=== PATIENT | female | born 1980 | race Caucasian/White ===

== ENCOUNTER 2017-01-16 10:30 | Inpatient (IN) | payer BC, OTHER ==
[2017-01-16] MEDS ORDERED: fentaNYL* 50 MCG/ML 2 ML VIAL (100 MCG VIAL) ONE (13:45)
[2017-01-16] MEDS ORDERED: Lidocaine 1% MPF* 2 ML VIAL ONE (13:49)
[2017-01-16 14:14] LABS: Hematocrit 35 % (35-47); Hemoglobin 11.5 g/dl (12.0-16.0); Mean Corpuscular HGB Conc 33 g/dl (31-36); Mean Corpuscular Hemoglobin 31 pg (27-31); Mean Corpuscular Volume 93 fL (80-97); Mean Platelet Volume 10 um3 (7.4-10.4); Red Blood Count 3.77 10^6/ul (4.0-5.4); Red Cell Distribution Width 14 % (10.5-15); White Blood Count 17.5 10^3/ul (3.5-10.8)
[2017-01-16] MEDS ORDERED: Famotidine TAB* 20 MG PO PRN (15:18)
[2017-01-16] MEDS ORDERED: Sodium Citrate/Citric Acid* 15 ML UDC PO PRN (15:18)
[2017-01-16] MEDS ORDERED: Phenylephrine IV* 40 MCG/ML 10 ML SYRINGE IV PUSH PRN (15:18)
[2017-01-16] MEDS ORDERED: Mineral Oil Sterile, TOPICAL* 25 ML BTL ONE (16:17)
[2017-01-16] MEDS ORDERED: Oxytocin in LR* 20 UNITS/1,000 ML BAG IVPB ONE (16:40)
[2017-01-16] MEDS ORDERED: Acetaminophen TAB* 325 MG PO PRN (16:53)
[2017-01-16] MEDS ORDERED: Dibucaine 1% 28.35 GM TUBE PR PRN (16:53)
[2017-01-16] MEDS ORDERED: Witch Hazel PAD* JAR TOPICAL PRN (16:53)
[2017-01-16] MEDS ORDERED: oxyCODONE/Acetamin 5/325 MG* TAB PO PRN (16:55)
[2017-01-16] MEDS ORDERED: Oxytocin in LR* 20 UNITS/1,000 ML BAG IVPB SCH (17:00)
[2017-01-16] MEDS: Ibuprofen TAB* 600 MG PO PRN (19:16)
[2017-01-16] MEDS: Docusate CAP* 100 MG PO SCH (20:39)
[2017-01-17] MEDS: Ibuprofen TAB* 600 MG PO PRN ×2 (02:00→09:52)
[2017-01-17] MEDS ORDERED: Ferrous Gluconate TAB* 324 MG TAB PO SCH (09:00)
[2017-01-17] MEDS: Docusate CAP* 100 MG PO SCH ×2 (09:52→15:50)
[2017-01-17 09:59] LABS: Hematocrit 32 % (35-47); Hemoglobin 10.3 g/dl (12.0-16.0); Mean Corpuscular HGB Conc 33 g/dl (31-36); Mean Corpuscular Hemoglobin 31 pg (27-31); Mean Corpuscular Volume 94 fL (80-97); Mean Platelet Volume 9 um3 (7.4-10.4); Red Blood Count 3.37 10^6/ul (4.0-5.4); Red Cell Distribution Width 14 % (10.5-15); White Blood Count 14.6 10^3/ul (3.5-10.8)
[2017-01-17 15:31] VITALS: BP 106/63
== END 2017-01-17 18:03 | disposition home or self-care (01) | DRG 560 ==
LOC: MCHOBOUT 10:30 → MCHOB 10:40
PROVIDERS: ADMIT Nurse Practitioner; ATTEND Midwife
PROC: 10E0XZZ Delivery of Products of Conception, External Approach (ICD-10-PCS; principal; 2017-01-16)
PROC: 10907ZC Drainage of Amniotic Fluid, Therapeutic from Products of Conception, Via Natural or Artificial Opening (ICD-10-PCS; 2017-01-16)
PROC: 4A1HXCZ Monitoring of Products of Conception, Cardiac Rate, External Approach (ICD-10-PCS; 2017-01-16)
PROC: 0HQ9XZZ Repair Perineum Skin, External Approach (ICD-10-PCS; 2017-01-16)
DX: O70.0 First degree perineal laceration during delivery (principal); Z37.0 Single live birth; Z3A.39 39 weeks gestation of pregnancy
CPT/HCPCS: 36415; 85027; 86850; 86900; 86901; A9270-GY; J3010

== ENCOUNTER 2018-10-10 18:58 | Emergency (ER) | payer BC, OTHER ==
[2018-10-10 19:11] VITALS: BP 119/76
--- NOTE | 2018-10-10 19:14 | UC ---
Throat Pain/Nasal Tye HPI - HPI Summary HPI Summary: 38 yo female presents with sore throat for the last 3-4 days. She has small children at home with colds and fevers and is concerned about strep. She has not been taking anything OTC. Denies fever, chills, sinus symptoms, cough, rash. - History of Current Complaint Chief Complaint: UCGeneralIllness Stated Complaint: SORE THROAT Time Seen by Provider: 10/10/18 19:13 Hx Obtained From: Patient Hx Last Menstrual Period: [id number] Onset/Duration: Sudden Onset Severity: Mild Pain Intensity: 2 Pain Scale Used: 0-10 Numeric - Allergies/Home Medications Allergies/Adverse Reactions: Allergies Allergy/AdvReac Type Severity Reaction Status Date / Time No Known Allergies Allergy Verified 10/10/18 19:11 PMH/Surg Hx/FS Hx/Imm Hx - Additional Past Medical History Additional PMH: None - Surgical History Surgical History: Yes Surgery Procedure, Year, and Place: tonsils; wisdom teeth - Family History Known Family History: Positive: None - Social History Occupation: Employed Full-time Lives: With Family Alcohol Use: Weekly Alcohol Amount: 3x's weekly Substance Use Type: None Smoking Status (MU): Never Smoked Tobacco Have You Smoked in the Last Year: No - Immunization History Most Recent Influenza Vaccination: 2016 Most Recent Tetanus Shot: 03/04/15 Most Recent Pneumonia Vaccination: never Review of Systems All Other Systems Reviewed And Are Negative: Yes Constitutional: Positive: Negative Skin: Positive: Negative Eyes: Positive: Negative ENT: Positive: Sore Throat Respiratory: Positive: Negative Cardiovascular: Positive: Negative Gastrointestinal: Positive: Negative Neurological: Positive: Negative Psychological: Positive: Negative Physical Exam - Summary Physical Exam Summary: GENERAL: NAD. WDWN. No pain distress. SKIN: No rashes, sores, lesions, or open wounds. HEENT: Head: AT/NC Eyes: EOM intact. Conjunctiva clear without inflammation or discharge. Ears: Hearing grossly normal. TMs intact, no bulging, erythema, or edema. Nose: Nasal mucosa pink and moist. NTTP maxillary and frontal sinus. Throat: Posterior oropharynx without exudates, erythema, or tonsillar enlargement. Uvula midline. NECK: Supple. Nontender. No lymphadenopathy. CHEST: CTAB. No r/r/w. No accessory muscle use. Breathing comfortably and in no distress. CV: RRR. Without m/r/g. Pulses intact. Cap refill <2seconds NEURO: Alert. PSYCH: Age appropriate behavior. Triage Information Reviewed: Yes Vital Signs: Initial Vital Signs Temp 99.0 F 10/10/18 19:06 Pulse 81 10/10/18 19:06 Resp 16 10/10/18 19:06 BP 119/76 10/10/18 19:06 Pulse Ox 100 10/10/18 19:06 Laboratory Tests 10/10/18 19:20 Group A Strep Rapid Negative Vital Signs Reviewed: Yes Throat Pain/Nasal Course/Dx - Course Course Of Treatment: POC strep negative. Suspect viral illness. - Differential Dx/Diagnosis Provider Diagnosis: Viral pharyngitis Discharge - Sign-Out/Discharge Documenting (check all that apply): Patient Departure All imaging exams completed and their final reports reviewed: No Studies - Discharge Plan Condition: Stable Disposition: HOME Patient Education Materials: Pharyngitis (ED) Referrals: Brandie Sow NP [Primary Care Provider] - Additional Instructions: If you develop a fever, shortness of breath, chest pain, new or worsening symptoms - please call your PCP or go to the ED. I recommend trying some tylenol/ibuprofen for discomfort as well as tea with honey to help your sore throat. - Billing Disposition and Condition Condition: STABLE Disposition: Home
== END 2018-10-10 19:40 | disposition home or self-care (01) ==
LOC: UCEAST 18:58
DX: J02.9 Acute pharyngitis, unspecified (principal)
CPT/HCPCS: 87651; 99211; G0463

== ENCOUNTER 2019-05-03 11:24 | Emergency (ER) | payer BC ==
[2019-05-03 11:46] VITALS: BP 114/69
--- NOTE | 2019-05-03 12:15 | UC ---
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 Has had congestion, sore throat, malaise, myalgias. Proceeded to have flu vaccine on , and day following had increased cough and fatigue. Concerned of infectious risk to young children at home. Mild chest tightness, appetite normal, no fever. - History of Current Complaint Chief Complaint: UCGeneralIllness Stated Complaint: FLU LIKE SYMPTOMS Time Seen by Provider: 05/03/19 11:56 Hx Obtained From: Patient Hx Last Menstrual Period: 04/26/19 Onset/Duration: Gradual Onset, Lasting Days - 7 Pain Intensity: 2 Cough: Nonproductive Associated Signs & Symptoms: Positive: Dysphagia, Hoarseness, Nasal Discharge - Epiglottits Risk Factors Epiglottis Risk Factors: Negative - Allergies/Home Medications Allergies/Adverse Reactions: Allergies Allergy/AdvReac Type Severity Reaction Status Date / Time No Known Allergies Allergy Verified 05/03/19 11:46 Home Medications: Home Medications NK [No Home Medications Reported] 05/03/19 [History Confirmed 05/03/19] PMH/Surg Hx/FS Hx/Imm Hx Previously Healthy: Yes - Surgical History Surgical History: Yes Surgery Procedure, Year, and Place: tonsils; wisdom teeth - Family History Known Family History: Positive: None, Non-Contributory - Social History Occupation: Employed Part-time Lives: With Family Alcohol Use: Weekly Alcohol Amount: 3x's weekly Substance Use Type: None Smoking Status (MU): Never Smoked Tobacco Have You Smoked in the Last Year: No - Immunization History Most Recent Influenza Vaccination: 2015 Most Recent Tetanus Shot: 03/04/15 Most Recent Pneumonia Vaccination: never Review of Systems All Other Systems Reviewed And Are Negative: Yes Constitutional: Positive: Fatigue ENT: Positive: Sore Throat, Nasal Discharge Respiratory: Positive: Cough. Negative: Shortness Of Breath Cardiovascular: Negative: Palpitations, Chest Pain Gastrointestinal: Positive: Diarrhea - some loose stools. Negative: Abdominal Pain, Vomiting, Nausea Genitourinary: Positive: Negative Motor: Positive: Negative Neurovascular: Positive: Negative Musculoskeletal: Positive: Myalgia Neurological: Positive: Negative Psychological: Positive: Negative Is Patient Immunocompromised?: No Physical Exam Triage Information Reviewed: Yes Appearance: No Pain Distress, Ill-Appearing - looks fatigued and mildly unwell. Vital Signs: Initial Vital Signs Temp 98 F 05/03/19 11:43 Pulse 78 05/03/19 11:43 Resp 17 05/03/19 11:43 BP 114/69 05/03/19 11:43 Pulse Ox 100 05/03/19 11:43 Eyes: Positive: Conjunctiva Clear ENT: Positive: Pharynx normal Neck: Positive: Supple, Nontender, Enlarged Nodes @ - mildly enlarged left tonsillar node, no other adenopathy. Respiratory: Positive: Lungs clear, Normal breath sounds, No respiratory distress Cardiovascular: Positive: RRR, No Murmur Musculoskeletal Exam: Normal Neurological Exam: Normal Psychological Exam: Normal Skin Exam: Normal Throat Pain/Nasal Course/Dx - Course Course Of Treatment: Continue symptomatic treatment of viral respiratory illness. Reviewed that progression not highly suggestive of flu and deferred testing. - Differential Dx/Diagnosis Differential Diagnosis/HQI/PQRI: Influenza, Pharyngitis, Sinusitis, URI Provider Diagnosis: URI, acute Discharge ED - Sign-Out/Discharge Documenting (check all that apply): Patient Departure All imaging exams completed and their final reports reviewed: No Studies - Discharge Plan Condition: Stable Disposition: HOME Patient Education Materials: Upper Respiratory Infection (ED) Referrals: Brandie Sow NP [Primary Care Provider] - Additional Instructions: Continue symptomatic treatment for relief of upper respiratory illness. continue good hand hygiene and prevetive measures for your children. follow up if you develop fever, increasing shortness of breath, or the cough persists longer than a few weeks. - Billing Disposition and Condition Condition: STABLE Disposition: Home
== END 2019-05-03 12:22 | disposition home or self-care (01) ==
LOC: UCEAST 11:24
DX: J06.9 Acute upper respiratory infection, unspecified (principal); M79.10 Myalgia, unspecified site; R13.10 Dysphagia, unspecified; R49.0 Dysphonia; R09.89 Other specified symptoms and signs involving the circulatory and respiratory systems; R53.83 Other fatigue; R19.7 Diarrhea, unspecified
CPT/HCPCS: 99211; G0463

== ENCOUNTER 2019-09-16 08:48 | Emergency (ER) | payer BC, OTHER ==
--- OUTSIDE RECORDS SUMMARY | 2019-09-16 08:56 | XMS REPORT | Continuity of Care Document ---
:1980 External Reference #:[id number] Author Name Dominic Zimmerman NP (transmitted by agent of provider Eda Anderson) Address [address], [place] [address] Care Team Providers Name Role Phone Tanesha Crocker MD - Internal Care Team Information Cryptologic Linguist Medicine Emily Ybarra MD - Internal Medicine Care Team Information Cryptologic Linguist [phone] Problems Active Problems Provider Date Hyperlipidemia Brandie Sow, N.P. Onset: 08/30/2011 Proteinuria Brandie Sow, N.P. Onset: 08/30/2011 Social History Type Date Description Comments Sex Unknown ETOH Use Currently consumes 3 - 4 per week alcohol Tobacco Use Start: Unknown Patient has never smoked Smoking Status Reviewed: 09/02/19 Patient has never smoked Exercise Exercises regularly 3 - 4 days per week Type/Frequency Allergies, Adverse Reactions, Alerts Description No Known Drug Allergies Medications Active Medications SIG Qnty Indications Ordering Date Provider Amoxicillin/Clavulan 1 tablet by mouth 20tabs J01.90 Tanesha 09/02/2019 ate Potassium twice a day for 10 CottonMaximo days 875-125mg Tablets Ventolin HFA 1 to 2 inhalations 16gm J01.90 Brandie Sow, 05/08/2019 every 4 hours as N.P. 108(90Base) mcg/Act needed Aerosol Fluticasone 2 sprays each 16gm J06.9 Brandie Sow, Propionate nostril qd. xc 2 N.P. 50mcg/Act weeks Suspension Multivitamin Women 1 by mouth every Unknown day Tablets History Medications Tamiflu 1 by mouth daily 10caps Brandie Sow, 08/18/2019 - 75mg for 10 days N.P. 08/28/2019 Capsules Amoxicillin/Clavula one tablet by 20tabs J01.90 Brandie Juanjose, 05/08/2019 - mary Potassium mouth twice N.P. 05/18/2019 daily for 10 875-125mg Tablets days Immunizations CPT Code Status Date Vaccine Lot # [id number] Given 08/30/2011 Tdap - Tetanus/Diptheria/Acellular Pertussis [id number] Vital Signs Date Vital Result Comment 09/02/2019 9:25am Height 64 inches 5'4" Weight 131.25 lb Heart Rate 94 /min BP Systolic Sitting 118 mmHg BP Diastolic Sitting 74 mmHg Body Temperature 97.7 F O2 % BldC Oximetry 98 % BMI (Body Mass Index) 22.5 kg/m2 06/17/2019 4:01pm Height 64 inches 5'4" Weight 127.50 lb Heart Rate 90 /min BP Systolic Sitting 105 mmHg BP Diastolic Sitting 70 mmHg Body Temperature 97.9 F O2 % BldC Oximetry 98 % BMI (Body Mass Index) 21.9 kg/m2 Results Test Acquired Date Facility Test Result H/L Range Note Laboratory test 09/02/[address] [facility] Influenza A & B <pending> finding [address] [place] [address] [phone] Urinalysis 06/19/[address] [facility] Urine Color Yellow Profile [address] [place] [address] [phone] Urine Appearance Cloudy Urine Specific [place] 1.017 Normal 1.010-1.030 Urine pH 7.0 Normal 5-9 Urine Urobilinogen Negative Negative Urine Ketones Negative Negative Urine Protein Negative Negative Urine Leukocytes Negative Negative Urine Blood Negative Negative Urine Nitrite Negative Negative Urine Bilirubin Negative Negative Urine Glucose Negative Negative Laboratory 06/19/[address] [facility] TSH (Thyroid 2.00 Normal 0.34 -5.60 test finding [address] Stim Horm) mcIU/[place] [address] [phone] HCG < 0.60 mIU/mL 1 Lipid Profile 06/01/[address] [facility] Triglycerides 89 mg/dL 2, 3 (Trig/Chol/HDL) [address] [place] [address] [phone] Cholesterol 252 mg/dL 4 HDL Cholesterol 60.4 mg/dL 5 LDL Cholesterol 174 mg/dL 6 Laboratory test 06/01/[address] [facility] Glucose 78 mg/dL Normal 70-100 [address] [place] [address] [phone] 1 <5.0 Negative 5.0 - 25.0 Indeterminate (Repeat testing recommended after 72 hours) >25.0 Positive Perimenopausal women can display HCG levels of up to 20 mIU/mL 2 FASTING 10 HOUR 3 Desirable: <150 Borderline High: 150-199 High: 200-499 Very High: >500 4 Desirable: <200 Borderline High: 200-239 High: >239 5 Low: <40 Desirable: 40-60 High: >60 6 Desirable: <100 Near Optimal: 100-129 Borderline High: 130-159 High: 160-189 Very High: >189 7 FASTING 10 HOUR Procedures Description No Information Available Medical Devices Description No Information Available Encounters Type Date Location Provider Dx Diagnosis Office Visit 06/17/2019 [facility] Brandie Sow, Z00.00 Encntr for general 4:00p Medicine - Ccmob N.P. adult medical exam w/o abnormal findings E78.00 Pure hypercholesterolemia, unspecified R80.8 Other proteinuria N92.6 Irregular menstruation, unspecified Office Visit 05/08/2019 1:40p [facility] Brandie Sow, J01.90 Acute sinusitis, Medicine - N.P. unspecified Ccmob Assessments Date Code Description Provider 09/02/2019 J06.9 Acute upper respiratory infection, Bagum Karimullah Gulshad , FINANCIAL SALES ASSISTANT unspecified 09/02/2019 J01.90 Acute sinusitis, unspecified Bagum Karimullah Gulshad, FINANCIAL SALES ASSISTANT 09/02/2019 H61.23 Impacted cerumen, bilateral Bagum Karimullah Gulshad, FINANCIAL SALES ASSISTANT 06/17/2019 Z00.00 Encounter for general adult medical Brandie Sow N.P. examination without abnormal findings 06/17/2019 E78.00 Pure hypercholesterolemia, unspecified Brandie Sow, N.P. 06/17/2019 R80.8 Other proteinuria Brandie Sow, N.P. 06/17/2019 N92.6 Irregular menstruation, unspecified Brandie Sow, N.P. 05/08/2019 J01.90 Acute sinusitis, unspecified Brandie Varn, N.P. 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 We are sending Flu swab test today. Will call with any abnormal results. Follow good hand washing and wear a mask when working with little kids.Follow up:as njpwixT87.90 Acute sinusitis, unspecifiedNew Medication:Amoxicillin/Clavulanate Potassium 875-125 mg - 1 tablet by mouth twice a day for 10 daysComments:You have sinus pressure and mild discomfort along with ear ache and headache. I am treating you withRachel. Please take this medication as directed for at least 7 days. You also have post nasal drop and client development manager cough with mucus production. Continue using your Fluticasone nasal spray - 2 sprays in each nostril once a day to dry up the sinuses and provide added comfort. Call if symptoms persist.H61.23 Impacted cerumen, bilateralComments:Both your ears have cerumen/wax in them. Irrigation done today. After irrigation your ear drum is visible. Your ear canals are slightly irritated. Try Hylands [id number] ear drops for comfort. Functional Status Description No Information Available Mental Status Description No Information Available Referrals Description No Information Available
[2019-09-16 09:15] VITALS: BP 108/59
--- NOTE | 2019-09-16 10:19 | UC ---
Throat Pain/Nasal Tye HPI - HPI Summary HPI Summary: 39-year-old female presents with 4 day history of sore throat. States she was seen by her primary care provider approximately 2 weeks ago and was treated for a sinus infection with a ten-day course of Augmentin which she did complete. She tested negative for flu and strep at that time. States her symptoms did resolve after about 7-8 days of treatment. Current symptoms are associated with some mild postnasal drip. Denies fever, chills, ear pain, dysphagia, cough , chest pain, shortness of breath, abdominal pain, nausea, or vomiting. - History of Current Complaint Chief Complaint: UCGeneralIllness Stated Complaint: SORE THROAT Time Seen by Provider: 09/16/19 10:07 Hx Obtained From: Patient Hx Last Menstrual Period: Pain Intensity: 2 - Allergies/Home Medications Allergies/Adverse Reactions: Allergies Allergy/AdvReac Type Severity Reaction Status Date / Time No Known Allergies Allergy Verified 09/16/19 09:15 Home Medications: Home Medications NK [No Home Medications Reported] 05/03/19 [History Confirmed 05/03/19] PMH/Surg Hx/FS Hx/Imm Hx Previously Healthy: Yes - Denies significant PMH - Surgical History Surgical History: Yes Surgery Procedure, Year, and Place: tonsils; wisdom teeth - Family History Family History: Denies significant FMH - Social History Occupation: Employed Full-time Lives: With Family Alcohol Use: Weekly Alcohol Amount: 3x's weekly Substance Use Type: None Smoking Status (MU): Never Smoked Tobacco Have You Smoked in the Last Year: No - Immunization History Most Recent Influenza Vaccination: 2016 Most Recent Tetanus Shot: 03/04/15 Most Recent Pneumonia Vaccination: never Review of Systems All Other Systems Reviewed And Are Negative: Yes Constitutional: Negative: Fever, Chills, Fatigue Skin: Negative: Rash Eyes: Negative: Drainage, Eye Redness ENT: Positive: Sore Throat, Other. Negative: Ear Ache, Nasal Discharge, Sinus Congestion, Sinus Pain/Tenderness Respiratory: Negative: Shortness Of Breath, Cough Cardiovascular: Negative: Palpitations, Chest Pain Gastrointestinal: Negative: Abdominal Pain, Vomiting, Diarrhea, Nausea Genitourinary: Positive: Negative Musculoskeletal: Positive: Negative Neurological/Mental Status: Positive: Negative Is Patient Immunocompromised?: No Physical Exam - Summary Physical Exam Summary: GENERAL APPEARANCE: Well developed, well nourished, alert and cooperative, and appears to be in no acute distress. EYES: Conjunctiva clear. No drainage. EARS: External auditory canals and tympanic membranes clear, hearing grossly intact. NOSE: No nasal discharge. THROAT: Mild pharyngeal erythema with PND. Tonsils surgically absent. Uvula midline. NECK: Neck supple, non-tender without lymphadenopathy. CARDIAC: Normal S1 and S2. No S3, S4 or murmurs. Rhythm is regular. There is no peripheral edema, cyanosis or pallor. Extremities are warm and well perfused. Capillary refill is less than 2 seconds. Peripheral pulses intact. LUNGS: Clear to auscultation without rales, rhonchi, wheezing or diminished breath sounds. ABDOMEN: Positive bowel sounds. Soft, nondistended, nontender. No guarding or rebound. No masses or hepatosplenomegally. MUSKULOSKELETAL: ROM intact to all extremities. No joint erythema or tenderness. Normal muscular development. Normal gait. SKIN: Skin normal color, texture and turgor with no lesions or eruptions. Triage Information Reviewed: Yes Vital Signs: Initial Vital Signs Temp 99.0 F 09/16/19 09:11 Pulse 84 09/16/19 09:11 Resp 18 09/16/19 09:11 BP 108/59 09/16/19 09:11 Pulse Ox 100 09/16/19 09:11 Vital Signs Reviewed: Yes Throat Pain/Nasal Course/Dx - Course Course Of Treatment: 39-year-old female presents with 4 day history of sore throat. States she was seen by her primary care provider approximately 2 weeks ago and was treated for a sinus infection with a ten-day course of Augmentin which she did complete. She tested negative for flu and strep at that time. States her symptoms did resolve after about 7-8 days of treatment. Current symptoms are associated with some mild postnasal drip. Denies fever, chills, ear pain, dysphagia, cough , chest pain, shortness of breath, abdominal pain, nausea, or vomiting. Afebrile. Vital signs stable. Patient and some mild pharyngeal postnasal drip and otherwise unremarkable exam. Rapid strep test was negative. Reviewed results with the patient. Discussed with the patient that with the negative strep test and recently having just completed antibiotics have a low suspicion for a bacterial infection at this time and recommending symptomatic treatment for pharyngitis and postnasal drip. She is to follow-up with her primary care provider in 5-7 days if symptoms are not improving. Anticipatory guidance and warning symptoms were reviewed with the patient. Verbalizes understanding and agrees with plan of care. - Differential Dx/Diagnosis Differential Diagnosis/HQI/PQRI: Influenza, Mononucleosis, Pharyngitis, Sinusitis, URI Provider Diagnosis: Pharyngitis, Postnasal drip Discharge ED - Sign-Out/Discharge Documenting (check all that apply): Patient Departure All imaging exams completed and their final reports reviewed: No Studies - Discharge Plan Condition: Stable Disposition: HOME Patient Education Materials: Pharyngitis (ED), Postnasal Drip (DC) Referrals: Brandie Sow NP [Primary Care Provider] - 5 Days Additional Instructions: Your rapid strep test in the clinic today was negative. There was evidence of some postnasal drip that is likely the cause of your sore throat. Use a saline rinse kit such as Neti Pot or NeilMed at least twice a day to help thin secretions and promote drainage of the sinuses. Use fluticasone (Flonase) nasal spray 2 sprays each nostril once daily. Drink plenty of fluids to avoid dehydration especially if you are running any fever. Use salt water gargles several times a day. Take over the counter acetaminophen (Tylenol) or ibuprofen (Advil, Motrin) according to directions as needed for pain or fever. You may also use Chloraseptic spray or Cepacol lonzenges according to directions which contain a numbing medication and can provide some temporary relief from your sore throat. Return here or follow up with your primary care provider in 5-7 days if symptoms persist. Seek immediate medical attention in the emergency room if you have fever greater than 100.5 F despite taking acetaminophen or ibuprofen, are unable to swallow or develop drooling, are unable to open your mouth fully, are unable to eat or drink, have pain that is not relieved with over the counter pain medication, or have any difficulty breathing. - Billing Disposition and Condition Condition: STABLE Disposition: Home
== END 2019-09-16 11:00 | disposition home or self-care (01) ==
LOC: UCEAST 08:48
DX: J02.9 Acute pharyngitis, unspecified (principal); R09.82 Postnasal drip
CPT/HCPCS: 87651; 99211; G0463